=== PATIENT | female | born 1980 | race Caucasian/White ===

== ENCOUNTER 2023-08-26 13:19 | Emergency (ER) | payer OTHER ==
[~2023-08-26] VITALS: Ht 167.6 cm; Wt 61.0 kg
[2023-08-26 13:24] VITALS: O2SAT 99
[2023-08-26] MEDS: ONDANSETRON HCL 4MG/2ML INJ IV STA (14:28)
[2023-08-26] MEDS: MORPHINE SULFATE 4 MG/ML INJ (FOR IV/IM USE) IV STA (14:28)
[2023-08-26] MEDS: SODIUM CHLORIDE 0.9% 1,000 ML IV ONE (14:30)
[2023-08-26 14:56] LABS: CLARITY URINE CLOUDY (CLEAR); COLOR URINE DARK YELLOW (YELLOW); GLUCOSE URINE NEGATIVE (NEGATIVE); KETONES URINE TRACE (NEGATIVE); LEUKOCYTE ESTERASE URINE TRACE (NEGATIVE); NITRITE URINE NEGATIVE (NEGATIVE); OCCULT BLOOD URINE 2+ (NEGATIVE); PROTEIN URINE 1+ (NEGATIVE); SPECIFIC GRAVITY URINE 1.031 (1.005-1.030)
[2023-08-26] MEDS: IBUPROFEN 600MG TABLET PO ONE (15:08)
[2023-08-26 15:13] LABS: SQUAMOUS EPITHELIAL CELL URINE 3+ /lpf (RARE/1+)
[2023-08-26 15:14] LABS: MUCUS URINE 1+ /lpf (< = 2+)
[2023-08-26 15:25] LABS: RBC URINE 25-50 /hpf (0-2)
[2023-08-26 15:26] LABS: BACTERIA URINE TRACE; WBC URINE 0-2 /hpf (0-2)
[2023-08-26 16:41] VITALS: BP 116/61; PULSE 68; RESP 16; TEMP 98.3
== END 2023-08-26 17:05 | disposition home or self-care (01) ==
LOC: ER 13:30
DX: R10.32 Left lower quadrant pain (principal); R11.2 Nausea with vomiting, unspecified; Z90.49 Acquired absence of other specified parts of digestive tract
CPT/HCPCS: 99283; 81003; J7030

== ENCOUNTER 2024-09-16 22:01 | Emergency (ER) | payer MEDICAID ==
[~2024-09-16] VITALS: Ht 170.2 cm; Wt 73.0 kg
[2024-09-16 22:06] VITALS: O2SAT 95
[2024-09-16 22:43] LABS: CLARITY URINE TURBID (CLEAR); COLOR URINE BROWN (YELLOW); PH URINE 6.5 (4.5-8.0); PROTEIN URINE 3+ (NEGATIVE); SPECIFIC GRAVITY URINE >1.030 (1.005-1.030)
[2024-09-16 22:44] LABS: GLUCOSE URINE NEGATIVE (NEGATIVE); KETONES URINE NEGATIVE (NEGATIVE); LEUKOCYTE ESTERASE URINE NEGATIVE (NEGATIVE); NITRITE URINE NEGATIVE (NEGATIVE); OCCULT BLOOD URINE 3+ (NEGATIVE); UROBILINOGEN URINE 0.2 E.U./dL (0.2-1.0)
[2024-09-16 22:47] LABS: BACTERIA URINE TRACE; RBC URINE TNTC /hpf (0-2); SQUAMOUS EPITHELIAL CELL URINE FEW /lpf (RARE/1+); WBC URINE 0-2 /hpf (0-2)
[2024-09-16 23:09] LABS: BASOPHILS % 0.7 % (0.0-2.0); EOSINOPHILS % 1.1 % (0.0-5.0); HEMATOCRIT. 41.4 % (36.0-48.0); HEMOGLOBIN. 13.7 g/dL (12.0-16.0); LYMPHOCYTES % 31.2 % (20.0-50.0); MEAN PLATELET VOLUME 10.0 fl (7.4-10.4); MONOCYTES % 7.9 % (2.0-8.0); NEUTROPHILS % 59.1 % (40.0-76.0); PLATELET 209 x1000/uL (130-400); RED BLOOD CELL COUNT 4.79 mill/uL (4.2-5.4); RED CELL DISTRIBUTION WIDTH 19.6 % (11.6-14.6)
[2024-09-16] MEDS: IBUPROFEN 400MG TABLET PO ONE (23:11)
[2024-09-16] MEDS: LOSARTAN 25 MG TABLET PO ONE (23:11)
[2024-09-16 23:26] LABS: CREATININE 0.9 mg/dL (0.6-1.0); UREA NITROGEN BLOOD 15 mg/dL (9-23)
[2024-09-16 23:27] LABS: HCG SCREEN NEGATIVE
[2024-09-17] MEDS ORDERED: CEPH500T MT (01:09)
[2024-09-17] MEDS ORDERED: IBUP-2028 MT (01:10)
[2024-09-17] MEDS ORDERED: FURO-151 MT (01:12)
[2024-09-17 01:28] VITALS: BP 146/109; PULSE 90; RESP 12; TEMP 36.8; O2SAT 98
== END 2024-09-17 01:25 | disposition home or self-care (01) ==
LOC: ER 22:01
DX: N30.01 Acute cystitis with hematuria (principal); I11.0 Hypertensive heart disease with heart failure; I50.9 Heart failure, unspecified; Z76.0 Encounter for issue of repeat prescription; Z90.49 Acquired absence of other specified parts of digestive tract; Z79.899 Other long term (current) drug therapy
CPT/HCPCS: 36415; 74176; 80048; 81003; 84703; 85025; 87210; 99284

== ENCOUNTER 2024-12-05 20:39 | Emergency (ER) | payer OTHER ==
[~2024-12-05] VITALS: Ht 170.2 cm; Wt 77.0 kg
[~2024-12-05 20:39] MED LIST: CEPH500T MT; FURO-151 MT; IBUP-2028 MT
[2024-12-05 20:44] VITALS: O2SAT 100
[2024-12-05] MEDS ORDERED: METO-396 PO (20:51)
[2024-12-05] MEDS ORDERED: LOSA25TA26 PO (20:54)
[2024-12-05 22:06] LABS: BASOPHILS % 1.0 % (0.0-2.0); EOSINOPHILS % 0.8 % (0.0-5.0); HEMATOCRIT. 42.0 % (36.0-48.0); HEMOGLOBIN. 13.6 g/dL (12.0-16.0); LYMPHOCYTES % 32.4 % (20.0-50.0); MEAN PLATELET VOLUME 10.2 fl (7.4-10.4); MONOCYTES % 8.4 % (2.0-8.0); NEUTROPHILS % 57.4 % (40.0-76.0); PLATELET 203 x1000/uL (130-400); RED BLOOD CELL COUNT 4.68 mill/uL (4.2-5.4); RED CELL DISTRIBUTION WIDTH 15.0 % (11.6-14.6)
[2024-12-05] MEDS: FUROSEMIDE 40MG TABLET PO ONE ×2 (22:16→23:38)
[2024-12-05 22:19] LABS: CREATININE 0.8 mg/dL (0.6-1.0); UREA NITROGEN BLOOD 16 mg/dL (9-23)
[2024-12-05 22:21] LABS: ASPARTATE AMINOTRANSFERASE 26 IU/L (<34); BILIRUBIN DIRECT 0.2 mg/dL (<=3.0); BILIRUBIN TOTAL 0.6 mg/dL (0.1-1.0); PROTEIN TOTAL 6.8 g/dL (6.0-8.3)
[2024-12-05 22:27] LABS: TROPONIN I HIGH SENSITIVITY 62 ng/L (3.0-34)
[2024-12-05 22:36] LABS: TROPONIN I HIGH SENSITIVITY 64 ng/L (3.0-34)
[2024-12-05] MEDS ORDERED: FURO40TA5 MT (23:05)
[2024-12-05] MEDS ORDERED: LOSA25TA26 MT (23:49)
[2024-12-05] MEDS ORDERED: METO-396 MT (23:49)
[2024-12-05 23:50] VITALS: BP 148/106; PULSE 100; RESP 16; TEMP 36.4; O2SAT 100
== END 2024-12-06 00:12 | disposition home or self-care (01) ==
LOC: ER 20:39 → CMPBEDREQ 12-06 07:58
DX: E87.70 Fluid overload, unspecified (principal); I11.0 Hypertensive heart disease with heart failure; I50.9 Heart failure, unspecified; Z79.899 Other long term (current) drug therapy; Z90.49 Acquired absence of other specified parts of digestive tract
CPT/HCPCS: 36415; 71045; 80048; 80076; 83735; 83880; 84484; 85025; 93005; 99285; A4606